=== PATIENT | male | born 1975 | race Caucasian/White ===

== ENCOUNTER 2024-06-22 22:42 | Emergency (ER) | payer OTHER ==
[~2024-06-22] VITALS: Ht 170.2 cm; Wt 88.5 kg
[2024-06-22] MEDS ORDERED: LORAZEPAM INJ 2 MG/ML VIAL ONE (23:06)
[2024-06-22] MEDS: IV NS 0.9% 1,000 ML BAG IV ONE (23:14)
[2024-06-22] MEDS: LORAZEPAM INJ 2 MG/ML VIAL IV ONE (23:14)
[2024-06-22 23:23] LABS: BASOPHILS % (AUTO) 0.4 % (0.0-2.0); EOSINOPHILS # (AUTO) 0.2 K/uL (0.0-0.7); EOSINOPHILS % (AUTO) 1.8 % (0.0-6.0); HEMATOCRIT 46 % (39-51); HEMOGLOBIN 15.4 g/dL (13.5-17.5); LYMPHOCYTES # (AUTO) 2.7 K/uL (0.8-4.8); LYMPHOCYTES % (AUTO) 23.9 % (20.0-44.0); MEAN CORPUSCULAR HEMOGLOBIN 31 PG (26.0-33.0); MEAN CORPUSCULAR HGB CONC 33 g/dl (31.0-36.0); MEAN CORPUSCULAR VOLUME 95 fL (80-96); MONOCYTES # (AUTO) 1.3 K/uL (0.1-1.30); MONOCYTES % (AUTO) 11.8 % (2.0-12.0); NEUTROPHILS % (AUTO) 62.1 % (43.0-81.0); PLATELET COUNT (AUTO) 348 K/uL (150-450); RED CELL DISTRIBUTION WIDTH 12.1 % (11.5-15.0); WHITE BLOOD COUNT (AUTO) 11.3 K/uL (4.3-11.0)
[2024-06-22 23:29] LABS: CALCIUM, SERUM 9.4 mg/dL (8.5-10.1); CARBON DIOXIDE 14 mmol/L (21-32); CHLORIDE 108 mmol/L (98-107); CREATININE 1.1 mg/dL (0.6-1.3); GLUCOSE 145 mg/dL (74-106); SODIUM SERUM 147 mmol/L (136-145); UREA NITROGEN, BLOOD 17 mg/dL (7-18)
[2024-06-22 23:45] LABS: ALANINE AMINOTRANSFERASE 195 U/L (12-78); ALBUMIN 3.7 g/dL (3.4-5.0); ALKALINE PHOSPHATASE 86 U/L (46-116); ASPARTATE AMINOTRANSFERASE 68 U/L (15-37); BILIRUBIN,DIRECT 0.1 mg/dL (0.0-0.2); BILIRUBIN,TOTAL 0.3 mg/dL (0.2-1.0); NT-PRO BNP 115 pg/mL (0-125); TOTAL PROTEIN, SERUM 7.7 g/dL (6.4-8.2)
[2024-06-23] MEDS ORDERED: POTASSIUM CL. PREMIX PERIPHER. 200 ML ONE (00:02)
[2024-06-23] MEDS: POTASSIUM CL. PREMIX PERIPHER. 50 ML IV SCH (00:07)
[2024-06-23 04:21] VITALS: BP 135/91; TEMP 98; O2SAT 97
== END 2024-06-23 04:22 | disposition home or self-care (01) ==
LOC: ER 22:49
DX: R56.9 Unspecified convulsions (principal); F17.200 Nicotine dependence, unspecified, uncomplicated
CPT/HCPCS: 99285; 96374; 70450; 71045; 96361 ×2; 93005; 85025; 80048; 80076; 36415; 84484; 83880; 82962; J2060; J7030; J7040; J3480